=== PATIENT | female | born 1965 | race Caucasian/White ===

== ENCOUNTER 2017-03-16 20:46 | Emergency (ER) | payer OTHER ==
[2017-03-16 20:56] VITALS: BP 115/83; PULSE 102; TEMP 98.6; BMI 35.7
--- NOTE | 2017-03-16 23:49 | PDOC ---
History of Present Illness <Jose Pepper - Last Filed: 03/17/17 01:08> - General History Source: Patient Exam Limitations: No Limitations - History of Present Illness Initial Comments: 03/16/17 23:50 The patient is a 51 year old female, with a significant past medical history of hyperlipidemia (not on any medications), who presents to the emergency department complaining of atraumatic bilateral lower extremity edema for approximately 5 days. The patient reports she has noted increased swelling in her legs for the past couple of days, with associated foot pain. She reports tingling in her feet, which she describes as pins and needles. She reports her swelling is worse during the day, especially when walking, and states her swelling decreases mildly at night. The patient reports she has been icing her legs, which mildly alleviates her swelling. The patient denies any associated chest pain, shortness of breath, diaphoresis, or palpitations. She denies any abdominal pain, nausea, vomiting, diarrhea, or constipation. Patient reports she has a gastric bypass surgery scheduled for May, for which she was advised to lose weight. She denies any fever, chills, cough, headache, or dizziness. The patient denies any recent travel or sick contacts. Allergies: NKDA Past Surgical History: Appendectomy, Cholecystectomy Social History: Non smoker. No ETOH or drug use. <Ashleigh Esteban - Last Filed: 03/17/17 01:15> - General Chief Complaint: Edema Stated Complaint: SWOLLEN FOOT Time Seen by Provider: 03/16/17 22:08 Past History - Past Medical History Cancer: Yes (vaginal) Suicide Attempt (Hx): No Seizures: Yes (epilepsy) - Surgical History Appendectomy: Yes Cholecystectomy: Yes - Immunization History Immunization Up to Date: Yes - Psycho/Social/Smoking Cessation Hx Anxiety: No Suicidal Ideation: No Smoking History: Never smoked Have you smoked in the past 12 months: No Information on smoking cessation initiated: No Hx Alcohol Use: No Drug/Substance Use Hx: No Substance Use Type: None <Jose Pepper - Last Filed: 03/17/17 01:08> <Ashleigh Esteban - Last Filed: 03/17/17 01:15> - Past Medical History Allergies/Adverse Reactions: Allergies Allergy/AdvReac Type Severity Reaction Status Date / Time No Known Allergies Allergy Verified 03/16/17 20:52 Home Medications: Ambulatory Orders Cyclobenzaprine HCl [Flexeril -] 10 mg PO TID PRN #21 tablet 01/21/16 Naproxen [Naprosyn -] 500 mg PO BID PRN #14 tablet 01/21/16 Review of Systems - Review of Systems Able to Perform ROS?: Yes Comments:: 03/16/17 23:50 CONSTITUTIONAL: No fever, no chills, no fatigue EYES: No visual changes ENT: No ear pain, no sore throat CARDIOVASCULAR: No chest pain, no palpitations RESPIRATORY: No cough, no SOB GI: No abdominal pain, no nausea, no vomiting, no constipation, no diarrhea GENITOURINARY: No dysuria, no frequency, no hematuria MUSKULOSKELETAL: Yes: +bilateral lower extremity swelling with associated tingling and foot pain. No backpain, no joint pain, no myalgias SKIN: No rash NEURO: No headache <Ashleigh Esteban - Last Filed: 03/17/17 01:15> *Physical Exam - Vital Signs Last Vital Signs Temp Pulse Resp BP Pulse Ox 98.6 F 102 H 20 115/83 98 03/16/17 20:53 03/16/17 20:53 03/16/17 20:53 03/16/17 20:53 03/16/17 20:53 <Jose Pepper - Last Filed: 03/17/17 01:08> - Vital Signs Last Vital Signs Temp Pulse Resp BP Pulse Ox 98.6 F 102 H 20 115/83 98 03/16/17 20:53 03/16/17 20:53 03/16/17 20:53 03/16/17 20:53 03/16/17 20:53 - Physical Exam Comments: 03/16/17 23:51 CONSTITUTIONAL: Well-appearing; well-nourished; in no apparent distress HEAD: Normocephalic; atraumatic EYES: PERRL; EOM intact ENMT: External appears normal; normal oropharynx NECK: Supple; non-tender; no cervical lymphadenopathy CARD: Normal S1, S2; no murmurs, rubs, or gallops RESP: Normal chest excursion with respiration; breath sounds clear and equal bilaterally; no wheezes, rhonchi, or rales ABD: Obese, Soft, non-distended; non-tender; no palpable organomegaly, no palpable hernias EXT: Minimal bimalleolar edema bilaterally. Normal ROM in all four extremities; non-tender to palpation; distal pulses intact SKIN: Warm, dry, no rash NEURO: No focal neurological deficiencies. <Ashleigh Esteban - Last Filed: 03/17/17 01:15> ED Treatment Course - ADDITIONAL ORDERS Additional order review: Laboratory Results 03/16/17 23:13 POC Glucometer [id number] 03/16/17 23:13 POC Glucometer [id number] <Jose Pepper - Last Filed: 03/17/17 01:08> - ADDITIONAL ORDERS Additional order review: Laboratory Results 03/16/17 23:13 POC Glucometer [id number] 03/16/17 23:13 POC Glucometer [id number] - RADIOLOGY Radiograph Interpretation: 03/17/17 01:04 EXAM: US lower extremities INTERPRETED BY: Dr. Cervantes REVIEWED BY: Dr. Pepper IMPRESSION: No DVT. <Ashleigh Esteban - Last Filed: 03/17/17 01:15> Medical Decision Making - Medical Decision Making 03/17/17 01:08 Patient is a morbidly obese 51-year-old female who presents with atraumatic bilateral lower extremity edema and foot pain. In the ER, patient is awake and alert, with minimal lower extremity edema bilaterally. There is no evidence of cellulitis. Bilateral Doppler ultrasound shows no evidence of acute DVT. Will discharge with instructions for weight loss and outpatient follow-up with PMD. <Jose Pepper - Last Filed: 03/17/17 01:08> *DC/Admit/Observation/Transfer - Attestations Physician Attestion: 03/17/17 01:08 The documentation was prepared by the scribe under my direct supervision. I have reviewed the documentation which correctly represents the findings, medical decision-making and critical action taken by me. <Jose Pepper - Last Filed: 03/17/17 01:08> - Attestations Scribe Attestion: 03/16/17 23:51 Documentation prepared by Ashleigh Esteban, acting as medical scientific liaison for Jose Pepper MD. <Ashleigh Esteban - Last Filed: 03/17/17 01:15> Diagnosis at time of Disposition: Leg edema, Leg pain, bilateral - Discharge Dispostion Disposition: HOME Condition at time of disposition: Stable - Referrals Referrals: Latrell Montgomery MD [Primary Care Provider] - - Patient Instructions Printed Discharge Instructions: DI for Peripheral Edema -- Bilateral Print Language: TRINIDADIAN
== END 2017-03-17 01:19 | disposition home or self-care (01) ==
LOC: JER 20:46
DX: R60.0 Localized edema (principal); Z85.59 Personal history of malignant neoplasm of other urinary tract organ; Z85.89 Personal history of malignant neoplasm of other organs and systems
CPT/HCPCS: 93970-TC; 99281-25

== ENCOUNTER 2022-11-12 22:29 | Emergency (ER) | payer OTHER ==
[2022-11-12 22:34] VITALS: TEMP 97.9; BMI 28.9
[2022-11-12] MEDS ORDERED: MAG HYDROX/AL HYDROX/SIMETH 30 ML UNIT-DOSE CUP PO ONE (22:42)
[2022-11-12] MEDS ORDERED: FAMOTIDINE 20 MG/50 ML IVPB 20 MG/50 ML MG IVPB ONE (22:42)
[2022-11-12] MEDS ORDERED: SODIUM CHLORIDE 500 ML IV STA (22:57)
[2022-11-12] MEDS ORDERED: MAG HYDROX/AL HYDROX/SIMETH 30 ML UNIT-DOSE CUP ONE (23:04)
[2022-11-12] MEDS ORDERED: FAMOTIDINE 10 MG/ML VIAL IVPB ONE (23:04)
[2022-11-12] MEDS ORDERED: SODIUM CHLORIDE 0.9% 500 ML INFUS.BAG IV ONE (23:06)
[2022-11-12 23:13] LABS: BASO % 0.5 % (0-2.0); EOS % 4.2 % (0-4.5); HEMATOCRIT 34.4 % (32.4-45.2); HEMOGLOBIN 11.6 GM/dL (10.7-15.3); LYMPH % 31.3 % (8-40); MCH 27.1 pg (25.7-33.7); MCHC 33.6 g/dl (32.0-36.0); MEAN CELL VOLUME 80.5 fl (80-96); MONO % 7.8 % (3.8-10.2); NEUT % 56.2 % (42.8-82.8); PLATELET COUNT 306 10^3/uL (134-434); RBC 4.27 M/mm3 (3.60-5.2); RDW 15.2 % (11.6-15.6)
[2022-11-12] MEDS ORDERED: ONDANSETRON 4 MG/2 ML VIAL IVPUSH ONE (23:19)
[2022-11-12] MEDS ORDERED: ONDANSETRON 4 MG/2 ML VIAL ONE (23:20)
[2022-11-12 23:33] LABS: CHLORIDE 103 mmol/L (98-107); SODIUM 139 mmol/L (136-145)
[2022-11-12 23:36] LABS: ALBUMIN 3.5 g/dl (3.4-5.0); ANION GAP 7 MMOL/L (8-16); BLOOD UREA NITROGEN 21.8 mg/dL (7-18); CO2 29 mmol/L (21-32); GLUCOSE,RANDOM 117 mg/dL (74-106); LIPASE 160 U/L (73-393)
[2022-11-12 23:39] LABS: CREATININE 0.8 mg/dL (0.55-1.3); SGOT/AST 16 U/L (15-37); SGPT/ALT 33 U/L (13-61)
[2022-11-12 23:40] LABS: TOT PROT 7.5 g/dl (6.4-8.2)
[2022-11-12 23:41] LABS: BILIRUBIN,TOTAL 0.2 mg/dL (0.2-1)
[2022-11-12 23:42] LABS: ALK PHOS 82 U/L (45-117)
[2022-11-13] MEDS ORDERED: MECLIZINE HCL 25 MG TABLET (FP) PO ONE (00:15)
[2022-11-13] MEDS ORDERED: LORazepam 2 MG/ML SDV VIAL IVPUSH ONE (00:16)
[2022-11-13] MEDS ORDERED: SODIUM CHLORIDE 0.9% 500 ML INFUS.BAG IV ONE (00:17)
[2022-11-13 00:22] LABS: URINE APPEARANCE CLEAR; URINE BILIRUBIN NEGATIVE (NEGATIVE); URINE COLOR YELLOW; URINE GLUCOSE (UA) NEGATIVE (NEGATIVE); URINE KETONE NEGATIVE (NEGATIVE); URINE LEUK ESTERASE NEGATIVE (NEGATIVE); URINE NITRITE NEGATIVE (NEGATIVE); URINE PROTEIN NEGATIVE (NEGATIVE); URINE UROBILINOGEN 0.2 mg/dL (0.2-1.0)
[2022-11-13 02:27] VITALS: BP 122/84; PULSE 88; RESP 20
== END 2022-11-13 02:58 | disposition home or self-care (01) ==
LOC: JER 22:29
PROC: 3E033GC Introduction of Other Therapeutic Substance into Peripheral Vein, Percutaneous Approach (ICD-10-PCS; principal; 2022-11-12)
PROC: 3E033GC Introduction of Other Therapeutic Substance into Peripheral Vein, Percutaneous Approach (ICD-10-PCS; 2022-11-12)
PROC: 3E033GC Introduction of Other Therapeutic Substance into Peripheral Vein, Percutaneous Approach (ICD-10-PCS; 2022-11-13)
DX: R11.2 Nausea with vomiting, unspecified (principal)
CPT/HCPCS: 36415; 74160-TC; 80053; 80307; 81003; 82550; 83605; 83690; 84484; 85025; 93005; 93010; 99285-25; Q9967